=== PATIENT | female | born 1965 ===

== ENCOUNTER 2020-02-21 16:09 | Emergency (ER) | payer SELFPAY ==
[~2020-02-21] VITALS: Ht 144.8 cm; Wt 59.2 kg
[2020-02-21 16:40] LABS: BASO # 0.1 x10^3/uL (0.0-0.2); BASO % 1 % (0-3); EOS % 0 % (0-3); HEMATOCRIT 34.7 % (36.0-47.0); LYMPH # 1.9 x10^3/uL (1.0-4.8); LYMPH % 24 % (24-48); MEAN CORPUSCULAR HEMOGLOBIN 22 pg (25-35); MEAN CORPUSCULAR HGB CONC 32 g/dL (31-37); MEAN CORPUSCULAR VOLUME 69 fL (79-100); MONO # 0.5 x10^3/uL (0.0-1.1); MONO % 6 % (0-9); NEUT # 5.6 x10^3uL (1.8-7.7); NEUT % 69 % (31-73); PLATELET COUNT 373 x10^3/uL (140-400); RED BLOOD COUNT 5.06 x10^6/uL (3.50-5.40); RED CELL DISTRIBUTION WIDTH 19.4 % (11.5-14.5)
[2020-02-21 16:46] LABS: CALCIUM 8.8 mg/dL (8.5-10.1); CREATININE 0.7 mg/dL (0.6-1.0); GFR 86.9; POTASSIUM 3.4 mmol/L (3.5-5.1)
[2020-02-21 16:47] LABS: ACETAMIN < 2.0 mcg/mL (10-30); ETHANOL 276 mg/dL (0-10); SALIC < 2.8 mg/dL (2.8-20.0)
[2020-02-21 17:00] LABS: ALBUMIN 3.6 g/dL (3.4-5.0); ALBUMIN/GLOBULIN RATIO 1.1 (1.0-1.7); MAGNESIUM 2.3 mg/dL (1.8-2.4); TOTAL BILIRUBIN 0.3 mg/dL (0.2-1.0); TOTAL PROTEIN 6.8 g/dL (6.4-8.2)
[2020-02-21] MEDS ORDERED: MVI, ADULT NO.4 WITH VIT K 10 ML, FOLIC ACID INJ 1 MG, THIAMINE INJ 100 MG in IV NORMAL... IV ONE (17:00)
--- NOTE | 2020-02-21 17:02 | RAD ---
CT scan of the head without contrast 02/21/2020 Clinical History: Altered mental status. Technique: Unenhanced, contiguous, 5 mm axial sections were obtained through the head. One or more of the following individualized dose reduction techniques were utilized for this study: 1. Automated exposure control. 2. Adjustment of the mA and/or kV according to patient size. 3. Use of iterative reconstruction technique. Findings: There is mild generalized parenchymal atrophy. No acute parenchymal abnormality is seen. No extra-axial fluid collection is noted. No skull fracture is seen. Impression: No acute intracranial abnormality is seen. Electronically signed by: Jatinder Julien MD (02/21/2020 4:59 PM) [id number]
--- NOTE | 2020-02-21 17:02 | RAD ---
Examination: PORTABLE CHEST 1V History: Reason: AMS / Spl. Instructions: / History: Comparison/Correlation: None Findings: Portable upright frontal view chest was obtained. Limited pulmonary inflation. Heart size is within normal limits. Pulmonary vasculature is within normal limits. No pneumothorax. No definite effusion. No focal infiltrate. Impression: No focal infiltrate. Electronically signed by: Naresh Winters MD (02/21/2020 5:00 PM) [id number]
--- NOTE | 2020-02-21 17:07 | PHYS DOC ---
Past History Past Medical History: No Pertinent History Alcohol Use: Heavy Adult General Chief Complaint Chief Complaint: ALTERED MENTAL STATUS HPI HPI Patient is a female with unknown medical history who presents to the ED today to be evaluated for altered mental status. Patient was at a homeless prison, she apparently left this morning with a couple men and returned back altered. She states she is drunk. She states she drank a lot of alcohol. Denies any abdominal pain, EMS reports she vomited and was given Zofran in route to the ED. Review of Systems Review of Systems Constitutional: Denies fever or chills [] Eyes: Denies change in visual acuity, redness, or eye pain [] HENT: Denies nasal congestion or sore throat [] Respiratory: Denies cough or shortness of breath [] Cardiovascular: No additional information not addressed in HPI [] GI: Denies abdominal pain, nausea, vomiting, bloody stools or diarrhea [] : Denies dysuria or hematuria [] Musculoskeletal: Denies back pain or joint pain [] Integument: Denies rash or skin lesions [] Neurologic: Reports altered mental status. Denies headache, focal weakness or sensory changes [] Psych: Reports drinking alcohol All other systems were reviewed and found to be within normal limits, except as documented in this note. Current Medications Current Medications Current Medications Medications (Trade) Dose Ordered [facility] Start Time Stop Time Status Last Admin Dose Admin Multivitamins/ Minerals 10 ml/ Folic Acid 1 mg/ Thiamine HCl 100 mg/Sodium Chloride 1,011.3 ml @ 1,000.187 mls/hr 1X ONCE 02/21/20 17:00 02/21/20 18:00 02/21/20 16:53 1,000.187 MLS/HR Allergies Allergies Allergies Coded Allergies Type Severity Reaction Last Updated Verified No Known Drug Allergies 02/21/20 No Physical Exam Physical Exam Constitutional: Well developed, well nourished, no acute distress, non-toxic appearance. [] HENT: Normocephalic, atraumatic, bilateral external ears normal, oropharynx moist, no oral exudates, nose normal. [] Eyes: PERRLA, EOMI, conjunctiva normal, no discharge. [] Neck: Normal range of motion, no tenderness, supple, no stridor. [] Cardiovascular:Heart rate regular rhythm, no murmur [] Lungs & Thorax: Bilateral breath sounds clear to auscultation [] Abdomen: Bowel sounds normal, soft, no tenderness, no masses, no pulsatile masses. [] Skin: Warm, dry, no erythema, no rash. [] Back: No tenderness, no CVA tenderness. [] Extremities: No tenderness, no cyanosis, no clubbing, ROM intact, no edema. [] Neurologic: Alert and oriented X 3, normal motor function, normal sensory function, no focal deficits noted. Cranial nerves II through XII intact Psychologic: Appears intoxicated Current Patient Data Vital Signs Vital Signs Date Time Temp Pulse Resp B/P (MAP) Pulse Ox O2 Delivery O2 Flow Rate FiO2 02/21/20 16:10 98.9 80 16 128/68 (88) 98 Room Air Lab Results Laboratory Tests Test 02/21/20 16:19 White Blood Count 8.0 x10^3/uL (4.0-11.0) Red Blood Count 5.06 x10^6/uL (3.50-5.40) Hemoglobin 11.0 g/dL (12.0-15.5) L Hematocrit 34.7 % (36.0-47.0) L Mean Corpuscular Volume 69 fL (79-100) L Mean Corpuscular Hemoglobin 22 pg (25-35) L Mean Corpuscular Hemoglobin Concent 32 g/dL (31-37) Red Cell Distribution Width 19.4 % (11.5-14.5) H Platelet Count 373 x10^3/uL (140-400) Neutrophils (%) (Auto) 69 % (31-73) Lymphocytes (%) (Auto) 24 % (24-48) Monocytes (%) (Auto) 6 % (0-9) Eosinophils (%) (Auto) 0 % (0-3) Basophils (%) (Auto) 1 % (0-3) Neutrophils # (Auto) 5.6 x10^3uL (1.8-7.7) Lymphocytes # (Auto) 1.9 x10^3/uL (1.0-4.8) Monocytes # (Auto) 0.5 x10^3/uL (0.0-1.1) Eosinophils # (Auto) 0.0 x10^3/uL (0.0-0.7) Basophils # (Auto) 0.1 x10^3/uL (0.0-0.2) Platelet Estimate Pending Prothrombin Time 9.4 SEC (9.4-11.4) Prothrombin Time INR 0.9 (0.9-1.1) Activated Partial Thromboplast Time 22 SEC (23-33) L Sodium Level 147 mmol/L (136-145) H Potassium Level 3.4 mmol/L (3.5-5.1) L Chloride Level 110 mmol/L (98-107) H Carbon Dioxide Level 26 mmol/L (21-32) Anion Gap 11 (6-14) Blood Urea Nitrogen 8 mg/dL (7-20) Creatinine 0.7 mg/dL (0.6-1.0) Estimated GFR (Cockcroft-Gault) 86.9 BUN/Creatinine Ratio 11 (6-20) Glucose Level 100 mg/dL (70-99) H Calcium Level 8.8 mg/dL (8.5-10.1) Magnesium Level 2.3 mg/dL (1.8-2.4) Total Bilirubin 0.3 mg/dL (0.2-1.0) Aspartate Amino Transferase (AST) 21 U/L (15-37) Alanine Aminotransferase (ALT) 25 U/L (14-59) Alkaline Phosphatase 70 U/L (46-116) Creatine Kinase 210 U/L (26-192) H Creatine Kinase MB (Mass) 3.6 ng/mL (0.0-3.6) Creatine Kinase MB Relative Index 1.7 % (0-4) Troponin I Quantitative < 0.017 ng/mL (0-0.055) VV-Yvc-B-Type Natriuretic Peptide 283 pg/mL (0-124) H Total Protein 6.8 g/dL (6.4-8.2) Albumin 3.6 g/dL (3.4-5.0) Albumin/Globulin Ratio 1.1 (1.0-1.7) Lipase 421 U/L (73-393) H Salicylates Level < 2.8 mg/dL (2.8-20.0) L Salicylate Last Dose Date Unk Salicylate Last Dose Time Unk Acetaminophen Level < 2.0 mcg/mL (10-30) L Acetaminophen Last Dose Date Unk Acetaminophen Last Dose Time Unk Ethyl Alcohol Level 276 mg/dL (0-10) H EKG EKG [address] Olson sinus rhythm HR 83 no STEMI[] Radiology/Procedures Radiology/Procedures []PROCEDURE: CT ABD PELV W/ IV CONTRST ONLY Exam: CT of abdomen and pelvis with contrast INDICATION: Elevated lipase, rule out pancreatitis TECHNIQUE: Sequential axial images through the abdomen and pelvis obtained following the administration of 75 mL of Omni 300 IV contrast. Sagittal and coronal reformatted images were reconstructed from the axial data and reviewed. Comparisons: None FINDINGS: Heart size is normal. No pericardial effusion. Strandy opacities at the dependent portion of the lungs likely representing atelectasis. No pleural effusion. Liver, spleen, pancreas, gallbladder and adrenals are unremarkable. No perinephric inflammation or hydronephrosis. No renal or ureteral calculi are identified. Bladder is distended and appears thin-walled. Uterus is absent. No abnormal adnexal mass. Large and small bowel are unremarkable. Appendix is normal. No free intra-abdominal air or fluid. No obstruction. Abdominal aorta has a normal course and caliber. Abdominal vasculature is patent. No enlarged intra-abdominal lymph nodes are identified. No suspicious osseous lesions or acute fractures. IMPRESSION: No acute process identified within the abdomen or pelvis. Exposure: One or more of the following in the visualized dose reduction techniques were utilized for this examination: 1. Automated exposure control 2. Adjustment of the MA and/or KV according to patient size 3. Use of iterative of reconstructive technique Electronically signed by: Naveen Woods MD (02/21/2020 5:46 PM) [facility] DICTATED AND SIGNED BY: NAVEEN WOODS MD DATE: 02/21/20 1746 CC: LULU PARKER APRN ~ PROCEDURE: PORTABLE CHEST 1V Examination: PORTABLE CHEST 1V History: Reason: AMS / Spl. Instructions: / History: Comparison/Correlation: None Findings: Portable upright frontal view chest was obtained. Limited pulmonary inflation. Heart size is within normal limits. Pulmonary vasculature is within normal limits. No pneumothorax. No definite effusion. No focal infiltrate. Impression: No focal infiltrate. Electronically signed by: Naresh Rodriguez MD (02/21/2020 5:00 PM) [id number] DICTATED AND SIGNED BY: NARESH RODRIGUEZ MD DATE: 02/21/20 1700 CC: LULU PARKER APRN ~ PROCEDURE: CT HEAD WO CONTRAST CT scan of the head without contrast 02/21/2020 Clinical History: Altered mental status. Technique: Unenhanced, contiguous, 5 mm axial sections were obtained through the head. One or more of the following individualized dose reduction techniques were utilized for this study: 1. Automated exposure control. 2. Adjustment of the mA and/or kV according to patient size. 3. Use of iterative reconstruction technique. Findings: There is mild generalized parenchymal atrophy. No acute parenchymal abnormality is seen. No extra-axial fluid collection is noted. No skull fracture is seen. Impression: No acute intracranial abnormality is seen. Electronically signed by: Jatinder Julien MD (02/21/2020 4:59 PM) [id number] DICTATED AND SIGNED BY: JATINDER JULIEN MD DATE: 02/21/201658 CC: LULU PARKER APRN ~ Heart Score Risk Factors: Risk Factors: DM, Current or recent (<one month) smoker, HTN, HLP, family history of CAD, obesity. Risk Scores: Risk Factors: DM, Current or recent (<one month) smoker, HTN, HLP, family history of CAD, obesity. Course & Med Decision Making Course & Med Decision Making Pertinent Labs and Imaging studies reviewed. (See chart for details) [] This is a 54-year-old female patient presenting to the ED evaluated for altered mental status. Patient was apparently at a homeless prison and left this morning with alcohol., She returned back altered and drunk. She is currently intoxicated and admits to drinking alcohol CT of the head was negative for any acute findings, chest x-ray interpreted by radiologist as negative for any acute findings. Patient refused to give us urine, CBC with a normal WBC. CMP with sodium of 147. Lipase 421, alcohol level 276. CT of the abdomen and pelvic is negative for any acute findings. Patient was given a banana bag in the ED. She is currently awake alert per ented. She was offered admission which she refused. She was discharged back to the prison. Provided GI as well as instructions to seek help for alcohol use Dragon Disclaimer Dragon Disclaimer This electronic medical record was generated, in whole or in part, using a voice recognition dictation system. Departure Departure: Impression: Primary Impression: Alcohol intoxication Additional Impression: Altered mental status Disposition: 01 DC HOME SELF CARE/HOMELESS Condition: STABLE Patient Instructions: Alcohol Intoxication, Altered Mental Status Additional Instructions: You were evaluated in the emergency room, you are currently alert and oriented. We recommend you consider getting help for alcohol use at [facility]. Follow-up with your doctor in the course of next week Problem Qualifiers Primary Impression: Alcohol intoxication Complication of substance-induced condition: with unspecified complication Qualified Codes: F10.929 - Alcohol use, unspecified with intoxication, unspecified Additional Impression: Altered mental status Altered mental status type: unspecified Qualified Codes: R41.82 - Altered mental status, unspecified LULU PARKER TOOL DESIGNER APPRENTICE Feb 21, 2020 17:07
[2020-02-21] MEDS ORDERED: IOHEXOL 300 MG/ML 75 ML VIAL. IV ONE (17:15)
[2020-02-21] MEDS ORDERED: CONTRAST GIVEN. MC PRN (17:30)
[2020-02-21 17:33] VITALS: BP 128/68
[2020-02-21 17:42] LABS: % BASOS 2 % (0-3); % LYMPHS 20 % (24-48); % MONOS 9 % (0-10); % SEGS 69 % (35-66); PLT ESTIMATE ADEQUATE (ADEQUATE)
[2020-02-21 17:43] LABS: ANISOCYTOSIS SLIGHT; HYPOCHROMIA MOD; MICROCYTOSIS MOD; ROULEAUX PRESENT
--- NOTE | 2020-02-21 17:49 | RAD ---
Exam: CT of abdomen and pelvis with contrast INDICATION: Elevated lipase, rule out pancreatitis TECHNIQUE: Sequential axial images through the abdomen and pelvis obtained following the administration of 75 mL of Omni 300 IV contrast. Sagittal and coronal reformatted images were reconstructed from the axial data and reviewed. Comparisons: None FINDINGS: Heart size is normal. No pericardial effusion. Strandy opacities at the dependent portion of the lungs likely representing atelectasis. No pleural effusion. Liver, spleen, pancreas, gallbladder and adrenals are unremarkable. No perinephric inflammation or hydronephrosis. No renal or ureteral calculi are identified. Bladder is distended and appears thin-walled. Uterus is absent. No abnormal adnexal mass. Large and small bowel are unremarkable. Appendix is normal. No free intra-abdominal air or fluid. No obstruction. Abdominal aorta has a normal course and caliber. Abdominal vasculature is patent. No enlarged intra-abdominal lymph nodes are identified. No suspicious osseous lesions or acute fractures. IMPRESSION: No acute process identified within the abdomen or pelvis. Exposure: One or more of the following in the visualized dose reduction techniques were utilized for this examination: 1. Automated exposure control 2. Adjustment of the MA and/or KV according to patient size 3. Use of iterative of reconstructive technique Electronically signed by: Naveen Lambert MD (02/21/2020 5:46 PM) [facility]
--- NOTE | 2020-02-21 17:56 | EKG ---
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
== END 2020-02-21 18:41 | disposition home or self-care (01) ==
LOC: ER 16:09
DX: F10.229 Alcohol dependence with intoxication, unspecified (principal); R41.82 Altered mental status, unspecified; R11.10 Vomiting, unspecified
CPT/HCPCS: 36415; 70450; 71045; 74177; 80053; 80329; 82553; 83690; 83735; 83880; 84443; 84484; 85007; 85025; 85610; 85730; 93005; 96365; 99285; G0480; J7030; Q9967